=== PATIENT | male | born 1960 | race Caucasian/White ===

== ENCOUNTER 2024-11-28 11:58 | Inpatient (IN) | payer MEDICARE, BC ==
[~2024-11-28] VITALS: Ht 180.3 cm; Wt 88.9 kg
[2024-11-28] MEDS: FUROSEMIDE 40 MG/4 ML VIAL IV SCH (09:00)
[2024-11-28] MEDS: dilTIAZem 25 MG/5 ML VIAL IV STA (12:26)
[2024-11-28] MEDS ORDERED: XARE20TA PO (12:29)
[2024-11-28] MEDS ORDERED: LOSA50TA28 PO (12:29)
[2024-11-28] MEDS ORDERED: DILT-44 PO (12:29)
[2024-11-28] MEDS ORDERED: LEVO50TA5 PO (12:29)
[2024-11-28] MEDS ORDERED: METO1TAB7 PO (12:29)
[2024-11-28 12:35] LABS: BASO # 0.0 10^3/uL (0.0-0.2); BASO % 0.4 % (0.0-1.0); EOS # 0.2 10^3/uL (0.0-0.5); EOS % 1.5 % (0.0-3.0); LYMPH # 1.5 10^3/uL (1.5-5.0); LYMPH % 14.6 % (24.0-44.0); MONO # 0.7 10^3/uL (0.0-0.8); MONO % 6.6 % (2.0-8.0); NEUTROPHILS # 7.7 10^3/uL (1.5-8.5); NEUTROPHILS % 76.5 % (36.0-66.0); PLATELET COUNT, AUTOMATED 239 10^3/uL (150-450)
[2024-11-28] MEDS: dilTIAZem 30 MG TAB PO ONE (12:40)
[2024-11-28 12:51] LABS: INR 1.32
[2024-11-28 13:14] LABS: FREE T4 1.17 NG/DL (0.89-1.76)
[2024-11-28 13:59] LABS: CPK CREATINE PHOSPHOKINASE 45.0 U/L (46-171)
[2024-11-28 14:06] LABS: ALT/SGPT 17.0 U/L (7.0-40); AST/SGOT 15.0 U/L (<34); CALCIUM LEVEL 8.7 MG/DL (8.3-10.6); CARBON DIOXIDE LEVEL 24.0 MMOL/L (20-31); CHLORIDE LEVEL 109.0 MMOL/L (98-107); CK-MB VALUE MASS 1.3 NG/ML (<3.6); CREATININE FOR GFR 1.06 MG/DL (0.70-1.30); GLOMERULAR FILTRATION RATE 77.4 (>49); MAGNESIUM LEVEL 0.8 MG/DL (1.8-2.4); MB/CK RELATIVE INDEX 2.88 (< OR =4); PHOSPHORUS LEVEL 3.3 MG/DL (2.4-5.1); POTASSIUM SERUM 4.5 MMOL/L (3.5-5.1); SODIUM LEVEL 143.0 MMOL/L (136-145)
[2024-11-28] MEDS ORDERED: ISOVUE-370 76% 100 ML VIAL As Ordered ONE (14:21)
[2024-11-28] MEDS: MAG SULF 1GM/100ML (MAG RUN) 1 GM in IV 1 EA IV ONE (14:36)
[2024-11-28 15:12] LABS: CK-MB VALUE MASS 1.0 NG/ML (<3.6); CPK CREATINE PHOSPHOKINASE 59.0 U/L (46-171); MB/CK RELATIVE INDEX 1.69 (< OR =4)
[2024-11-28] MEDS ORDERED: ATOR1TAB21 PO (15:40)
[2024-11-28] MEDS ORDERED: ALLO100T PO (15:40)
[2024-11-28] MEDS ORDERED: METF10004 PO (15:40)
[2024-11-28] MEDS ORDERED: HOME MED LIST COMPLETE! XX SCH (15:40)
[2024-11-28] MEDS ORDERED: ACETAMINOPHEN 325 MG TAB PO PRN (15:50)
[2024-11-28 16:59] VITALS: BP 146/84; TEMP 97.3; O2SAT 95
[2024-11-28] MEDS ORDERED: DEXTROSE 50% 50 ML SYRINGE IV PRN (17:05)
[2024-11-28] MEDS ORDERED: GLUCAGON INJ 1 MG VIAL SC PRN (17:05)
[2024-11-28] MEDS ORDERED: GLUCOSE 4 GM CHEW PO PRN (17:05)
[2024-11-28] MEDS: MAG SULF 1GM/100ML (MAG RUN) 1 GM in IV 1 EA IV SCH (17:08)
[2024-11-28] MEDS: INSULIN LISPRO (NovoLOG) PER UNIT SC SCH ×2 (18:00→21:00)
[2024-11-28 19:50] VITALS: BP 130/71; TEMP 97.4; O2SAT 95
[2024-11-28] MEDS ORDERED: dilTIAZem 120 MG **CD** CAPSULE PO SCH (21:00)
[2024-11-28] MEDS: METOPROLOL SUCC. 50 MG *XL* TAB PO SCH (22:25)
[2024-11-29] VITALS (20 sets, daily range): BP systolic 93–140; BP diastolic 50–85; TEMP 97–98.2; O2SAT 94–98
[2024-11-29] MEDS: LEVOTHYROXINE 50 MCG TABLET (0.05 MG) PO SCH (06:42)
[2024-11-29 06:51] LABS: PLATELET COUNT, AUTOMATED 228 10^3/uL (150-450)
[2024-11-29 07:40] LABS: CALCIUM LEVEL 8.9 MG/DL (8.3-10.6); CARBON DIOXIDE LEVEL 28.0 MMOL/L (20-31); CHLORIDE LEVEL 103.0 MMOL/L (98-107); CREATININE FOR GFR 1.3 MG/DL (0.70-1.30); GLOMERULAR FILTRATION RATE 60.6 (>49); MAGNESIUM LEVEL 1.2 MG/DL (1.8-2.4); POTASSIUM SERUM 4.1 MMOL/L (3.5-5.1); SODIUM LEVEL 142.0 MMOL/L (136-145)
[2024-11-29] MEDS: MAG SULF 1GM/100ML (MAG RUN) 1 GM in IV 1 EA IV SCH ×2 (08:50→18:04)
[2024-11-29] MEDS: ATORVASTATIN 20 MG TAB PO SCH (08:51)
[2024-11-29] MEDS: MAGNESIUM OXIDE 400 MG TAB PO SCH (08:51)
[2024-11-29] MEDS: RIVAROXABAN 20MG TAB PO SCH (08:51)
[2024-11-29] MEDS: dilTIAZem 120 MG **CD** CAPSULE PO SCH (09:34)
[2024-11-29] MEDS: METOPROLOL TART 25 MG TABLET PO SCH (14:32)
[2024-11-29] MEDS: METOPROLOL 5 MG/5 ML VIAL IV SCH (16:39)
[2024-11-29] MEDS ORDERED: METOPROLOL 5 MG/5 ML VIAL As Ordered ONE (16:59)
[2024-11-30 04:24] VITALS: BP 130/71; TEMP 97.4; O2SAT 95
[2024-11-30 07:59] VITALS: BP 115/75; TEMP 97; O2SAT 96
[2024-11-30 08:02] LABS: CALCIUM LEVEL 9.1 MG/DL (8.3-10.6); CARBON DIOXIDE LEVEL 30.0 MMOL/L (20-31); CHLORIDE LEVEL 100.0 MMOL/L (98-107); CREATININE FOR GFR 1.34 MG/DL (0.70-1.30); GLOMERULAR FILTRATION RATE 58.4 (>49); MAGNESIUM LEVEL 1.7 MG/DL (1.8-2.4); POTASSIUM SERUM 3.9 MMOL/L (3.5-5.1); SODIUM LEVEL 142.0 MMOL/L (136-145)
[2024-11-30] MEDS ORDERED: MAGN400T33 PO (09:12)
[2024-11-30] MEDS ORDERED: METO1TAB7 PO (09:12)
[2024-11-30 09:13] VITALS: BP 115/75
[2024-11-30] MEDS ORDERED: METOPROLOL TART 25 MG TABLET PO SCH (12:00)
== END 2024-11-30 11:02 | disposition home or self-care (01) | DRG 640 ==
LOC: M ED 11:58 → M ED INP 15:47 → M PCU 16:41
PROVIDERS: ADMIT Internal Medicine Nephrology; ATTEND Internal Medicine Nephrology
PROC: B246ZZZ Ultrasonography of Right and Left Heart (ICD-10-PCS; principal; 2024-11-30)
DX: E83.42 Hypomagnesemia (principal); I50.23 Acute on chronic systolic (congestive) heart failure; I48.92 Unspecified atrial flutter; I42.8 Other cardiomyopathies; I48.91 Unspecified atrial fibrillation; E11.9 Type 2 diabetes mellitus without complications; E78.5 Hyperlipidemia, unspecified; E79.0 Hyperuricemia without signs of inflammatory arthritis and tophaceous disease; Z98.41 Cataract extraction status, right eye; Z98.42 Cataract extraction status, left eye; E03.9 Hypothyroidism, unspecified; Z79.890 Hormone replacement therapy; Z79.899 Other long term (current) drug therapy; Z79.01 Long term (current) use of anticoagulants; Z79.84 Long term (current) use of oral hypoglycemic drugs